=== PATIENT | female | born 1990 | race Two or more races ===

== ENCOUNTER 2018-01-23 10:20 | Inpatient (IN) | payer MEDICAID ==
[~2018-01-23 10:20] MED LIST: FAMOTIDINE 20 MG INJ; METOCLOPRAMIDE 10 MG INJ
[2018-01-23 11:46] LABS: ADD MAN DIFF? NO
[2018-01-23 11:50] LABS: WHITE BLOOD COUNT 10.9 10^3/ul (4.8-10.8)
[2018-01-23 11:50] LABS: ABNORMAL IP MESSAGE 1; BASOPHILS % 0.2 % (0.0-2.0); EOSINOPHILS # 0.1 10^3/ul (0.0-0.5); EOSINOPHILS % 0.5 % (0.0-7.0); HEMATOCRIT 31.3 % (37.0-47.0); HEMOGLOBIN 10.6 g/dl (12.0-16.0); LYMPHOCYTES # 1.8 10^3/ul (0.8-2.9); LYMPHOCYTES % 16.7 % (15.0-51.0); MEAN CORPUSCULAR HEMOGLOBIN 31.9 pg (29.0-33.0); MEAN CORPUSCULAR HGB CONC 33.9 g/dl (32.0-37.0); MEAN CORPUSCULAR VOLUME 94.3 fl (82.0-101.0); MEAN PLATELET VOLUME 10.1 fl (7.4-10.4); MONOCYTE # 0.5 10^3/ul (0.3-0.9); MONOCYTES % 4.7 % (0.0-11.0); NEUTROPHIL # 8.4 10^3/ul (1.6-7.5); NEUTROPHILS % 77.4 % (39.0-77.0); PLATELET COUNT 99 10^3/UL (140-415); RED BLOOD COUNT 3.32 10^6/ul (4.20-5.40); RED CELL DISTRIBUTION WIDTH 15.1 % (11.5-14.5)
[2018-01-23 11:52] LABS: ADD UMIC YES; UR ASCORBIC ACID NEGATIVE (NEGATIVE); UR BILIRUBIN (Dip) NEGATIVE (NEGATIVE); UR BLOOD (Dip) 3+ mg/dL (NEGATIVE); UR CLARITY CLOUDY (CLEAR); UR COLOR YELLOW (YELLOW); UR GLUCOSE (Dip) NEGATIVE (NEGATIVE); UR KETONES (Dip) NEGATIVE (NEGATIVE); UR LEUKOCYTE ESTERASE (Dip) NEGATIVE Leu/ul (NEGATIVE); UR MUCUS FEW /HPF (NONE SEEN); UR NITRITE (Dip) NEGATIVE (NEGATIVE); UR RBC 2 /HPF (0-5); UR SPECIFIC GRAVITY (Dip) 1.023 (1.003-1.030); UR SQUAMOUS EPITHELIAL CELL MODERATE /HPF (FEW); UR TOTAL PROTEIN (Dip) 3+ mg/dl (NEGATIVE); UR UROBILINOGEN (Dip) NEGATIVE (NEGATIVE); UR WBC 15 /HPF (0-5)
[2018-01-23 11:54] LABS: POSITIVE DIFF @See below
[2018-01-23 12:09] LABS: INR 0.95; PROTIME 12.8 Sec (11.9-14.9)
[2018-01-23 12:10] LABS: PARTIAL THROMBOPLASTIN TIME 27.6 Sec (25.0-35.0)
[2018-01-23 12:11] LABS: ALANINE AMINOTRANSFERASE 81 IU/L (13-69); ALBUMIN 2.8 g/dl (3.3-4.9); ALBUMIN/GLOBULIN RATIO 0.93; ALKALINE PHOSPHATASE 80 IU/L (42-121); ANION GAP 9 (8-16); ASPARTATE AMINO TRANSFERASE 95 IU/L (15-46); BILIRUBIN,INDIRECT 0.3 mg/dl (0-1.1); BILIRUBIN,TOTAL 0.3 mg/dl (0.2-1.3); BLOOD UREA NITROGEN 11 mg/dl (7-20); CALCIUM 8.2 mg/dl (8.4-10.2); CARBON DIOXIDE 23 mmol/L (21-31); CHLORIDE 109 mmol/L (97-110); CREATININE 0.58 mg/dl (0.44-1.00); GLUCOSE 80 mg/dl (70-220); POTASSIUM 4.1 mmol/L (3.5-5.1); SODIUM 137 mmol/L (135-144); TOTAL PROTEIN 5.8 g/dl (6.1-8.1); URIC ACID 5.9 mg/dl (3.1-7.9)
[2018-01-23] MEDS ORDERED: LACTATED RINGER'S 1,000 ML IV (13:14)
[2018-01-23] MEDS ORDERED: METHYLERGONOVINE 0.2 MG INJ IM (13:30)
[2018-01-23] MEDS ORDERED: CEFAZOLIN 2 GM/50 ML (PMX) 50 ML IV (13:30)
[2018-01-23] MEDS ORDERED: CLINDAMYCIN 900 MG/D5W (PMX) 50 ML IV (13:30)
[2018-01-23] MEDS ORDERED: CARBOPROST 250 MCG INJ IM (13:30)
[2018-01-23] MEDS ORDERED: OXYTOCIN 30 UNITS/LR 500 ML IV (13:30)
[2018-01-23] MEDS ORDERED: MISOPROSTOL 200 MCG TAB PR (13:30)
[2018-01-23 14:13] LABS: HEPATITIS B SURFACE ANTIGEN NEGATIVE (NEGATIVE)
[2018-01-23] MEDS ORDERED: FAMOTIDINE 20 MG INJ (14:38)
[2018-01-23] MEDS: ONDANSETRON (ODT) 4 MG TAB ODT (14:38)
[2018-01-23] MEDS ORDERED: ONDANSETRON 4 MG INJ (14:38)
[2018-01-23] MEDS ORDERED: METOCLOPRAMIDE 10 MG INJ (14:39)
[2018-01-23 14:56] LABS: HIV 1&2 ANTIBODY NEGATIVE (NEGATIVE)
[2018-01-23] MEDS ORDERED: CITRIC ACID/SODIUM CITRATE 15 ML CUP (14:58)
[2018-01-23] MEDS: FAMOTIDINE 20 MG INJ IV (15:27)
[2018-01-23] MEDS: CITRIC ACID/SODIUM CITRATE 15 ML CUP PO (15:27)
[2018-01-23] MEDS ORDERED: PROPOFOL 20 ML (15:29)
[2018-01-23] MEDS ORDERED: FENTAnyl 50 MCG/ML VIAL (15:30)
[2018-01-23] MEDS ORDERED: SUCCINYLCHOLINE CHLORIDE 100 MG/5 ML SYG IV (15:30)
[2018-01-23] MEDS ORDERED: HYDROmorphONE 2 MG/ML SYG (15:30)
[2018-01-23] MEDS ORDERED: LIDOCAINE 2% (SDV) 5 ML INJ (15:30)
[2018-01-23] MEDS ORDERED: MIDAZOLAM 1 MG/ML 2 ML INJ (15:30)
[2018-01-23] MEDS ORDERED: OXYTOCIN 10 UNIT INJ (15:32)
[2018-01-23 15:34] LABS: IMMEDIATE SPIN CROSSMATCH 1 2
[2018-01-23] MEDS ORDERED: ROCURONIUM 50 MG INJ (15:43)
[2018-01-23] MEDS ORDERED: SUGAMMADEX SODIUM 200 MG/2 ML VIAL IV (15:43)
[2018-01-23] MEDS ORDERED: HYDROmorphONE 0.5 MG/0.5 ML SYG IV ×2 (17:00)
[2018-01-23] MEDS ORDERED: IPRATROPIUM (NEB) 0.5 MG/2.5 ML AMP HHN (17:00)
[2018-01-23] MEDS ORDERED: DIPHENHYDRAMINE 50 MG INJ IV ×2 (17:00)
[2018-01-23] MEDS ORDERED: NALOXONE (0.4 MG/ML) INJ IV (17:00)
[2018-01-23] MEDS ORDERED: ZOLPIDEM 5 MG TAB PO (17:00)
[2018-01-23] MEDS ORDERED: ONDANSETRON 4 MG INJ IV ×2 (17:00)
[2018-01-23] MEDS ORDERED: HYDROmorphONE 1 MG/5 ML IV SYRINGE IV ×3 (17:00)
[2018-01-23] MEDS ORDERED: FENTAnyl 50 MCG/ML VIAL IV ×2 (17:00)
[2018-01-23] MEDS: MAGNESIUM SULFATE 4 GM/100 ML 100 ML IV (17:09)
[2018-01-23] MEDS: OXYTOCIN 30 UNITS/LR 500 ML IV (17:26)
[2018-01-23 17:35] LABS: RAPID PLASMA REAGIN NONREACTIVE (NR)
[2018-01-23] MEDS: HYDROmorphONE 0.2 MG/ML PCA IV (17:37)
[2018-01-23] MEDS: MAGNESIUM SULFATE 20 GM/500 ML 500 ML IV (17:39)
[2018-01-23] MEDS: ONDANSETRON 4 MG INJ IV (18:50)
[2018-01-23 23:08] LABS: ADD MAN DIFF? NO
[2018-01-23 23:12] LABS: ABNORMAL IP MESSAGE 1; BASOPHILS % 0.2 % (0.0-2.0); EOSINOPHILS % 0.1 % (0.0-7.0); HEMATOCRIT 32.8 % (37.0-47.0); HEMOGLOBIN 11.1 g/dl (12.0-16.0); LYMPHOCYTES # 1.1 10^3/ul (0.8-2.9); LYMPHOCYTES % 7.4 % (15.0-51.0); MEAN CORPUSCULAR HEMOGLOBIN 32.2 pg (29.0-33.0); MEAN CORPUSCULAR HGB CONC 33.8 g/dl (32.0-37.0); MEAN CORPUSCULAR VOLUME 95.1 fl (82.0-101.0); MEAN PLATELET VOLUME 10.2 fl (7.4-10.4); MONOCYTE # 0.7 10^3/ul (0.3-0.9); MONOCYTES % 4.5 % (0.0-11.0); NEUTROPHIL # 12.7 10^3/ul (1.6-7.5); NEUTROPHILS % 87.3 % (39.0-77.0); PLATELET COUNT 96 10^3/UL (140-415); RED BLOOD COUNT 3.45 10^6/ul (4.20-5.40)
[2018-01-23 23:12] LABS: WHITE BLOOD COUNT 14.5 10^3/ul (4.8-10.8)
[2018-01-23 23:14] LABS: POSITIVE DIFF @See below
[2018-01-23 23:28] LABS: ANION GAP 8 (8-16); BLOOD UREA NITROGEN 8 mg/dl (7-20); CALCIUM 7.8 mg/dl (8.4-10.2); CARBON DIOXIDE 23 mmol/L (21-31); CHLORIDE 106 mmol/L (97-110); CREATININE 0.53 mg/dl (0.44-1.00); GLUCOSE 107 mg/dl (70-220); POTASSIUM 4.4 mmol/L (3.5-5.1); SODIUM 133 mmol/L (135-144)
[2018-01-24] MEDS: OXYTOCIN 30 UNITS/LR 500 ML IV ×3 (00:39→05:18)
[2018-01-24] MEDS ORDERED: LANOLIN 7 GM TUBE TOP (01:30)
[2018-01-24] MEDS ORDERED: OXYCODONE/ACETAMINOPHEN (5/325) TAB PO (01:30)
[2018-01-24] MEDS ORDERED: CARBOPROST 250 MCG INJ IM (01:30)
[2018-01-24] MEDS ORDERED: OXYTOCIN 30 UNITS/LR 500 ML IV (01:30)
[2018-01-24] MEDS ORDERED: HYDROCODONE/APAP (5/325) TAB PO (01:30)
[2018-01-24] MEDS ORDERED: MISOPROSTOL 200 MCG TAB PR (01:30)
[2018-01-24] MEDS ORDERED: METHYLERGONOVINE 0.2 MG INJ IM (01:30)
[2018-01-24 01:41] LABS: MAGNESIUM 4.7 mg/dl (1.7-2.5)
[2018-01-24] MEDS: MAGNESIUM SULFATE 20 GM/500 ML 500 ML IV ×3 (03:29→16:30)
[2018-01-24] MEDS: CLINDAMYCIN 900 MG/D5W (PMX) 50 ML IV (06:24)
[2018-01-24] MEDS: LACTATED RINGER'S 1,000 ML IV ×2 (06:33→18:50)
[2018-01-24 08:28] LABS: ADD MAN DIFF? NO
[2018-01-24 08:38] LABS: WHITE BLOOD COUNT 11.4 10^3/ul (4.8-10.8)
[2018-01-24 08:38] LABS: ABNORMAL IP MESSAGE 1; BASOPHILS % 0.3 % (0.0-2.0); EOSINOPHILS % 0.2 % (0.0-7.0); HEMATOCRIT 30.3 % (37.0-47.0); HEMOGLOBIN 10.4 g/dl (12.0-16.0); LYMPHOCYTES # 1.1 10^3/ul (0.8-2.9); LYMPHOCYTES % 9.4 % (15.0-51.0); MEAN CORPUSCULAR HEMOGLOBIN 32.4 pg (29.0-33.0); MEAN CORPUSCULAR HGB CONC 34.3 g/dl (32.0-37.0); MEAN CORPUSCULAR VOLUME 94.4 fl (82.0-101.0); MEAN PLATELET VOLUME 10.6 fl (7.4-10.4); MONOCYTE # 0.6 10^3/ul (0.3-0.9); MONOCYTES % 4.8 % (0.0-11.0); NEUTROPHIL # 9.7 10^3/ul (1.6-7.5); NEUTROPHILS % 84.9 % (39.0-77.0); PLATELET COUNT 56 10^3/UL (140-415); RED BLOOD COUNT 3.21 10^6/ul (4.20-5.40); RED CELL DISTRIBUTION WIDTH 15.3 % (11.5-14.5)
[2018-01-24 08:42] LABS: POSITIVE DIFF @See below
[2018-01-24 08:58] LABS: MAGNESIUM 4.5 mg/dl (1.7-2.5)
[2018-01-24] MEDS: SENNA/DOCUSATE NA (8.6MG/50MG) TAB PO ×2 (09:00→21:21)
[2018-01-24 15:25] LABS: MAGNESIUM 4.1 mg/dl (1.7-2.5)
[2018-01-24] MEDS: OXYCODONE/ACETAMINOPHEN (5/325) TAB PO ×2 (16:58→21:22)
[2018-01-24] MEDS: IBUPROFEN 600 MG TAB PO (18:00)
[2018-01-25] MEDS: IBUPROFEN 600 MG TAB PO ×5 (00:09→23:42)
[2018-01-25 03:34] LABS: MAGNESIUM 3.8 mg/dl (1.7-2.5)
[2018-01-25] MEDS: LACTATED RINGER'S 1,000 ML IV (05:05)
[2018-01-25] MEDS: SENNA/DOCUSATE NA (8.6MG/50MG) TAB PO ×2 (09:00→21:02)
[2018-01-25] MEDS: MAGNESIUM SULFATE 20 GM/500 ML 500 ML IV (09:34)
[2018-01-25 10:03] LABS: ADD MAN DIFF? NO
[2018-01-25 10:05] LABS: ABNORMAL IP MESSAGE 1; BASOPHILS % 0.2 % (0.0-2.0); EOSINOPHILS # 0.1 10^3/ul (0.0-0.5); EOSINOPHILS % 1.1 % (0.0-7.0); HEMATOCRIT 29.3 % (37.0-47.0); HEMOGLOBIN 9.6 g/dl (12.0-16.0); LYMPHOCYTES # 1.7 10^3/ul (0.8-2.9); LYMPHOCYTES % 15.4 % (15.0-51.0); MEAN CORPUSCULAR HEMOGLOBIN 31.6 pg (29.0-33.0); MEAN CORPUSCULAR HGB CONC 32.8 g/dl (32.0-37.0); MEAN CORPUSCULAR VOLUME 96.4 fl (82.0-101.0); MEAN PLATELET VOLUME 11.9 fl (7.4-10.4); MONOCYTE # 0.5 10^3/ul (0.3-0.9); MONOCYTES % 4.3 % (0.0-11.0); NEUTROPHIL # 8.7 10^3/ul (1.6-7.5); NEUTROPHILS % 78.1 % (39.0-77.0); RED BLOOD COUNT 3.04 10^6/ul (4.20-5.40); RED CELL DISTRIBUTION WIDTH 15.9 % (11.5-14.5)
[2018-01-25 10:05] LABS: WHITE BLOOD COUNT 11.1 10^3/ul (4.8-10.8)
[2018-01-25 10:09] LABS: PARTIAL THROMBOPLASTIN TIME 28.1 Sec (25.0-35.0)
[2018-01-25 10:20] LABS: PLATELET COUNT 44 10^3/UL (140-415)
[2018-01-25 10:23] LABS: INR 0.94; PROTIME 12.7 Sec (11.9-14.9)
[2018-01-25] MEDS: NA PHOSPHATE/BIPHOS 133 ML ENEMA PR (10:30)
[2018-01-25] MEDS: HYDROCODONE/APAP (5/325) TAB PO ×2 (10:31→17:50)
[2018-01-25] MEDS: METOCLOPRAMIDE 10 MG INJ IM (10:31)
[2018-01-25 10:37] LABS: FIBRIN SPLIT PRODUCT <10 ug/ml (<10)
[2018-01-25 10:50] LABS: ALANINE AMINOTRANSFERASE 145 IU/L (13-69); ALBUMIN 2.8 g/dl (3.3-4.9); ALBUMIN/GLOBULIN RATIO 0.93; ALKALINE PHOSPHATASE 79 IU/L (42-121); ANION GAP 9 (8-16); ASPARTATE AMINO TRANSFERASE 88 IU/L (15-46); BILIRUBIN,INDIRECT 0.1 mg/dl (0-1.1); BILIRUBIN,TOTAL 0.1 mg/dl (0.2-1.3); BLOOD UREA NITROGEN 7 mg/dl (7-20); CALCIUM 7.5 mg/dl (8.4-10.2); CARBON DIOXIDE 27 mmol/L (21-31); CHLORIDE 108 mmol/L (97-110); CREATININE 0.58 mg/dl (0.44-1.00); GLUCOSE 121 mg/dl (70-220); SODIUM 140 mmol/L (135-144); TOTAL PROTEIN 5.8 g/dl (6.1-8.1); URIC ACID 5.4 mg/dl (3.1-7.9)
[2018-01-25 11:06] LABS: ADD UMIC YES; UR ASCORBIC ACID NEGATIVE (NEGATIVE); UR BACTERIA FEW /HPF (NONE SEEN); UR BILIRUBIN (Dip) NEGATIVE (NEGATIVE); UR BLOOD (Dip) 1+ mg/dL (NEGATIVE); UR CLARITY CLEAR (CLEAR); UR COLOR STRAW (YELLOW); UR GLUCOSE (Dip) NEGATIVE (NEGATIVE); UR KETONES (Dip) NEGATIVE (NEGATIVE); UR LEUKOCYTE ESTERASE (Dip) NEGATIVE Leu/ul (NEGATIVE); UR NITRITE (Dip) NEGATIVE (NEGATIVE); UR RBC 0 /HPF (0-5); UR SPECIFIC GRAVITY (Dip) 1.003 (1.003-1.030); UR TOTAL PROTEIN (Dip) NEGATIVE (NEGATIVE); UR UROBILINOGEN (Dip) NEGATIVE (NEGATIVE); UR WBC 1 /HPF (0-5)
[2018-01-25] MEDS: LABETALOL 100 MG TAB PO ×2 (11:16→21:02)
[2018-01-26] MEDS: IBUPROFEN 600 MG TAB PO ×3 (05:30→18:00)
[2018-01-26] MEDS: NA PHOSPHATE/BIPHOS 133 ML ENEMA PR (05:49)
[2018-01-26] MEDS: SENNA/DOCUSATE NA (8.6MG/50MG) TAB PO (09:17)
[2018-01-26] MEDS: LABETALOL 100 MG TAB PO (09:18)
[2018-01-26] MEDS: DIPHTH/TET/ACEL PERTUSS (ADULT) 0.5 ML VIAL IM* (12:40)
[2018-01-26 16:53] LABS: ADD MAN DIFF? NO
[2018-01-26 16:56] LABS: WHITE BLOOD COUNT 8.5 10^3/ul (4.8-10.8)
[2018-01-26 16:56] LABS: ABNORMAL IP MESSAGE 1; BASOPHILS % 0.1 % (0.0-2.0); EOSINOPHILS # 0.1 10^3/ul (0.0-0.5); EOSINOPHILS % 1.7 % (0.0-7.0); HEMATOCRIT 27.1 % (37.0-47.0); HEMOGLOBIN 8.8 g/dl (12.0-16.0); LYMPHOCYTES % 23.8 % (15.0-51.0); MEAN CORPUSCULAR HEMOGLOBIN 31.7 pg (29.0-33.0); MEAN CORPUSCULAR HGB CONC 32.5 g/dl (32.0-37.0); MEAN CORPUSCULAR VOLUME 97.5 fl (82.0-101.0); MEAN PLATELET VOLUME 11.2 fl (7.4-10.4); MONOCYTE # 0.4 10^3/ul (0.3-0.9); MONOCYTES % 5.1 % (0.0-11.0); NEUTROPHIL # 5.8 10^3/ul (1.6-7.5); NEUTROPHILS % 68.5 % (39.0-77.0); RED BLOOD COUNT 2.78 10^6/ul (4.20-5.40); RED CELL DISTRIBUTION WIDTH 15.8 % (11.5-14.5)
[2018-01-26 17:01] LABS: POSITIVE DIFF @See below
[2018-01-26 17:02] LABS: PLATELET COUNT 94 10^3/UL (140-415)
[2018-01-26 19:16] LABS: ADD MAN DIFF? NO
[2018-01-26 19:28] LABS: ABNORMAL IP MESSAGE 1; BASOPHILS % 0.2 % (0.0-2.0); EOSINOPHILS # 0.2 10^3/ul (0.0-0.5); EOSINOPHILS % 2.1 % (0.0-7.0); HEMATOCRIT 27.5 % (37.0-47.0); LYMPHOCYTES % 25.5 % (15.0-51.0); MEAN CORPUSCULAR HEMOGLOBIN 31.9 pg (29.0-33.0); MEAN CORPUSCULAR HGB CONC 32.7 g/dl (32.0-37.0); MEAN CORPUSCULAR VOLUME 97.5 fl (82.0-101.0); MEAN PLATELET VOLUME 11.4 fl (7.4-10.4); MONOCYTE # 0.4 10^3/ul (0.3-0.9); MONOCYTES % 5.4 % (0.0-11.0); NEUTROPHIL # 5.3 10^3/ul (1.6-7.5); NEUTROPHILS % 65.9 % (39.0-77.0); RED BLOOD COUNT 2.82 10^6/ul (4.20-5.40); RED CELL DISTRIBUTION WIDTH 15.8 % (11.5-14.5)
[2018-01-26 19:31] LABS: POSITIVE DIFF @See below
[2018-01-26 19:33] LABS: PLATELET COUNT 96 10^3/UL (140-415)
[2018-01-26 19:36] LABS: ALANINE AMINOTRANSFERASE 107 IU/L (13-69); ALBUMIN 3.2 g/dl (3.3-4.9); ALBUMIN/GLOBULIN RATIO 0.96; ALKALINE PHOSPHATASE 90 IU/L (42-121); ANION GAP 12 (8-16); ASPARTATE AMINO TRANSFERASE 56 IU/L (15-46); BILIRUBIN,INDIRECT 0.4 mg/dl (0-1.1); BILIRUBIN,TOTAL 0.4 mg/dl (0.2-1.3); BLOOD UREA NITROGEN 11 mg/dl (7-20); CALCIUM 8.3 mg/dl (8.4-10.2); CARBON DIOXIDE 24 mmol/L (21-31); CHLORIDE 108 mmol/L (97-110); CREATININE 0.66 mg/dl (0.44-1.00); GLUCOSE 91 mg/dl (70-220); POTASSIUM 4.5 mmol/L (3.5-5.1); SODIUM 139 mmol/L (135-144); TOTAL PROTEIN 6.5 g/dl (6.1-8.1); URIC ACID 5.5 mg/dl (3.1-7.9)
[2018-01-26 19:37] LABS: INR 0.92; PROTIME 12.4 Sec (11.9-14.9)
[2018-01-26 19:38] LABS: PARTIAL THROMBOPLASTIN TIME 26.4 Sec (25.0-35.0)
[2018-01-26 20:04] LABS: FIBRIN SPLIT PRODUCT >10 and <40 ug/ml (<10)
== END 2018-01-26 20:05 | disposition home or self-care (01) | DRG 766 ==
LOC: OBT 10:20 → PP1 01-24 01:16 → L-D 10:21 → OBT 13:00 → L-D 13:00
PROC: 10D00Z1 Extraction of Products of Conception, Low, Open Approach (ICD-10-PCS; principal; 2018-01-24)
DX: O14.24 HELLP syndrome, complicating childbirth (principal); Z3A.37 37 weeks gestation of pregnancy; Z37.0 Single live birth
CPT/HCPCS: 36430; 71045; 76818; 80048; 80053; 81001; 83735; 84560; 85025; 85362; 85384; 85610; 85730; 86592; 86644; 86703; 86850; 86900; 86901; 86920; 86945; 87340; 88307; 90715; 99464